=== PATIENT | male | born 1990 | race Caucasian/White ===

== ENCOUNTER 2017-05-25 11:13 | Emergency (ER) | payer MEDICAID ==
[2017-05-25 12:12] LABS: HCT - HEMATOCRIT 46.5 % (42.0-52.0); HGB - HEMOGLOBIN 15.8 g/dL (14.0-18.0); MEAN CORPUSCULAR HEMOGLOBIN 31.3 pg (27.0-31.0); MEAN CORPUSCULAR VOLUME 91.9 fL (80.0-94.0); RED BLOOD COUNT 5.05 10^6/uL (4.70-6.10); RED CELL DISTRIBUTION WIDTH 12.8 % (12.0-15.0); WHITE BLOOD COUNT 5.7 x10^3/uL (4.8-10.8)
--- NOTE | 2017-05-25 12:16 | ED Physician Documentation ---
PD HPI MHE - Stated complaint Stated Complaint: SI - Chief complaint Chief Complaint: MHE - History obtained from History obtained from: Patient, Family (sister in law, Margarita) - History of Present Illness Primary symptom: Suicidal ideation Timing - onset: Yesterday Pain level max: 0 Pain level now: 0 Similar symptoms before: Diagnosis (depression) Recently seen: Not recently seen - Additional information Additional information: states feeling suicidal. no plan. has tried to hang himself and cut his wrists in the past. Was seeing [facility], but has not seen them since february. No currently on medications. Also states hearing voices, but not telling him to harm himself or anyone. Review of Systems Ten Systems: 10 systems reviewed and negative Constitutional: denies: Fever, Chills Ears: denies: Ear pain Nose: denies: Rhinorrhea / runny nose, Congestion Throat: denies: Sore throat GI: denies: Abdominal Pain, Nausea, Vomiting, Diarrhea Skin: denies: Rash Musculoskeletal: denies: Neck pain, Back pain Neurologic: denies: Focal weakness, Numbness, Headache Psychiatric: reports: Depressed, Suicidal. denies: Homicidal, Hallucinations, Delusions, Anxiety PD PAST MEDICAL HISTORY - Past Medical History Past Medical History: Yes Psych: Depression, Bipolar disorder - Past Surgical History Past Surgical History: No - Present Medications Home Medications: Ambulatory Orders Medication Instructions Recorded Confirmed No Known Home Medications [No 05/25/17 05/25/17 Known Home Medications] - Allergies Allergies/Adverse Reactions: Allergies Allergy/AdvReac Type Severity Reaction Status Date / Time No Known Drug Allergies Allergy Verified 05/25/17 11:22 - Social History Does the pt smoke?: No Smoking Status: Never smoker Does the pt drink ETOH?: No Does the pt have substance abuse?: No PD ED PE NORMAL - Vitals Vital signs reviewed: Yes - General General: Alert and oriented X 3, No acute distress, Well developed/nourished - HEENT HEENT: PERRL, Moist mucous membranes - Neck Neck: Supple, no meningeal sign - Cardiac Cardiac: RRR, Strong equal pulses - Respiratory Respiratory: No respiratory distress, Clear bilaterally - Abdomen Abdomen: Soft, Non tender, Non distended - Derm Derm: Warm and dry - Extremities Extremities: Other (normal exam) - Neuro Neuro: Alert and oriented X 3 - Psych Psych: Normal mood, Normal affect Results - Vitals Vitals: Vital Signs - 24 hr 05/25/17 05/25/17 05/25/17 11:15 14:13 15:22 Temperature 36.7 C Heart Rate 71 68 68 Respiratory 16 16 12 Rate Blood Pressure 150/80 H 127/66 125/71 O2 Saturation 100 96 96 05/25/17 05/25/17 17:58 18:54 Temperature Heart Rate 64 69 Respiratory 14 16 Rate Blood Pressure 131/72 H 124/67 O2 Saturation 99 96 Oxygen O2 Source Room air - Labs Labs: Laboratory Tests 05/25/17 05/25/17 05/25/17 12:02 12:02 12:05 WBC 5.7 RBC 5.05 Hgb 15.8 Hct 46.5 MCV 91.9 MCH 31.3 H MCHC 34.0 RDW 12.8 Plt Count 219 MPV 8.0 Sodium 138 Potassium 3.9 Chloride 100 L Carbon Dioxide 30 Anion Gap 8.0 BUN 17 Creatinine 0.7 Estimated GFR (MDRD) 139 Glucose 51 L* POC Whole Bld Glucose Calcium 9.5 Total Bilirubin 2.3 H AST 19 ALT 18 Alkaline Phosphatase 51 Total Protein 8.0 Albumin 5.2 Globulin 2.8 Albumin/Globulin Ratio 1.9 Lipase 21 L Salicylates < 6.0 Urine Opiates Screen NEGATIVE Ur Oxycodone Screen NEGATIVE Urine Methadone Screen NEGATIVE Ur Propoxyphene Screen NEGATIVE Acetaminophen < 10 L Ur Barbiturates Screen NEGATIVE Ur Tricyclics Screen NEGATIVE Ur Phencyclidine Scrn NEGATIVE Ur Amphetamine Screen NEGATIVE U Methamphetamines Scrn NEGATIVE U Benzodiazepines Scrn NEGATIVE Urine Cocaine Screen NEGATIVE U Cannabinoids Screen NEGATIVE Ethyl Alcohol < 5.0 05/25/17 13:38 WBC RBC Hgb Hct MCV MCH MCHC RDW Plt Count MPV Sodium Potassium Chloride Carbon Dioxide Anion Gap BUN Creatinine Estimated GFR (MDRD) Glucose POC Whole Bld Glucose 115 H Calcium Total Bilirubin AST ALT Alkaline Phosphatase Total Protein Albumin Globulin Albumin/Globulin Ratio Lipase Salicylates Urine Opiates Screen Ur Oxycodone Screen Urine Methadone Screen Ur Propoxyphene Screen Acetaminophen Ur Barbiturates Screen Ur Tricyclics Screen Ur Phencyclidine Scrn Ur Amphetamine Screen U Methamphetamines Scrn U Benzodiazepines Scrn Urine Cocaine Screen U Cannabinoids Screen Ethyl Alcohol PD MEDICAL DECISION MAKING - ED course Complexity details: reviewed results, re-evaluated patient, considered differential, d/w patient, d/w family, d/w healthcare network consultant (Felicia ÁLVAREZ) ED course: Patient is a 26-year-old male who presents to the emergency department with suicidal ideation, depression and hearing voices. The voices are not persecutory and are not telling him to harm himself or others. There are no voluntary psychiatric beds available in the region. There is a crisis respite bed and his family is comfortable taking him there. He is calm and cooperative throughout his emergency department stay. He is well-appearing, nontoxic. Afebrile. No acute ingestions. Medically clear for psychiatric care. Patient and family counseled regarding signs and symptoms for which I believe and urgent re-evaluation would be necessary. Patient with good understanding of and agreement to plan and is comfortable going home at this time This document was made in part using voice recognition software. While efforts are made to proofread this document, sound alike and grammatical errors may occur. Departure - Departure Disposition: 01 Home, Self Care Clinical Impression: Depression Qualifiers: Depression Type: unspecified Qualified Code(s): F32.9 - Major depressive disorder, single episode, unspecified Condition: Good Instructions: ED Depression Comments: Go to respite in [facility]. You should be there by 9pm. Return if you worsen. Discharge Date/Time: 05/25/17 18:57
[2017-05-25 12:39] LABS: ALBUMIN/GLOBULIN RATIO 1.9 (1.0-2.2); BILIRUBIN,TOTAL 2.3 mg/dL (0.2-1.0); BUN - BLOOD UREA NITROGEN 17 mg/dL (6-20); CALCIUM 9.5 mg/dL (8.5-10.3); CARBON DIOXIDE - CO2 30 mmol/L (21-32); CHLORIDE 100 mmol/L (101-111); CREATININE 0.7 mg/dL (0.6-1.2); GFR - MDRD 139 (>89); LIPASE 21 U/L (22-51); POTASSIUM 3.9 mmol/L (3.5-5.0); SALICYLATE < 6.0 mg/dL; SODIUM 138 mmol/L (135-145)
[2017-05-25 12:40] LABS: GLUCOSE 51 mg/dL (70-100)
[2017-05-25 12:41] LABS: ACETAMINOPHEN < 10 ug/mL (10-30)
[2017-05-25 18:55] VITALS: BP 124/67
== END 2017-05-25 18:57 | disposition home or self-care (01) ==
LOC: ED 11:13
DX: F32.9 Major depressive disorder, single episode, unspecified (principal); R45.851 Suicidal ideations
CPT/HCPCS: 36415; 80053; 80306; 80307; 80320; 80329; 83690; 99283

== ENCOUNTER 2017-06-03 10:07 | Emergency (ER) | payer MEDICAID ==
[2017-06-03 10:32] LABS: HCT - HEMATOCRIT 44.5 % (42.0-52.0); HGB - HEMOGLOBIN 15.3 g/dL (14.0-18.0); MEAN CORPUSCULAR HEMOGLOBIN 31.4 pg (27.0-31.0); MEAN CORPUSCULAR HGB CONC 34.3 g/dL (32.0-36.0); MEAN CORPUSCULAR VOLUME 91.6 fL (80.0-94.0); MEAN PLATELET VOLUME 7.6 fL (7.4-11.4); RED BLOOD COUNT 4.86 10^6/uL (4.70-6.10); RED CELL DISTRIBUTION WIDTH 12.5 % (12.0-15.0); WHITE BLOOD COUNT 6.6 x10^3/uL (4.8-10.8)
[2017-06-03 10:51] LABS: ALBUMIN/GLOBULIN RATIO 1.5 (1.0-2.2); BILIRUBIN,TOTAL 1.4 mg/dL (0.2-1.0); BUN - BLOOD UREA NITROGEN 14 mg/dL (6-20); CALCIUM 9.6 mg/dL (8.5-10.3); CARBON DIOXIDE - CO2 29 mmol/L (21-32); CHLORIDE 102 mmol/L (101-111); CREATININE 0.5 mg/dL (0.6-1.2); GFR - MDRD 204 (>89); GLUCOSE 92 mg/dL (70-100); LIPASE 23 U/L (22-51); SALICYLATE < 6.0 mg/dL; SODIUM 140 mmol/L (135-145); TOTAL PROTEIN 7.9 g/dL (6.7-8.2)
[2017-06-03 10:58] LABS: ACETAMINOPHEN < 10 ug/mL (10-30)
--- NOTE | 2017-06-03 17:11 | ED Physician Documentation ---
PD HPI MHE - Stated complaint Stated Complaint: MHE - Chief complaint Chief Complaint: MHE - History obtained from History obtained from: Patient - History of Present Illness Primary symptom: Suicidal ideation, Depression Recently seen: Admitted (Recent psychiatric hospitalization, discharged 4 days ago.) - Additional information Additional information: The patient is a 26-year-old male who complains of depression, and has had vague suicidal thoughts. He has no concrete plan at this time, but states he has thought about cutting his wrists. He has a past history of major depression with suicide attempt by hanging and by cutting his wrist in the past. He was recently hospitalized in a psych facility, and was discharged 4 days ago on Abilify. He reports a long history of depression and feelings of hopelessness. He denies any specific recent event that has resulted in the worsening of his condition. He denies the use of alcohol or other drugs. He lives with his brother. Review of Systems Constitutional: denies: Fever Eyes: denies: Irritation Ears: denies: Tinnitus/ringing Nose: denies: Congestion Throat: denies: Sore throat Cardiac: denies: Chest pain / pressure Respiratory: denies: Dyspnea, Cough GI: denies: Abdominal Pain, Nausea, Vomiting : denies: Dysuria Skin: denies: Rash Musculoskeletal: denies: Extremity pain Neurologic: denies: Focal weakness, Numbness, Headache Psychiatric: reports: Depressed, Suicidal. denies: Hallucinations, Delusions PD PAST MEDICAL HISTORY - Past Medical History Past Medical History: Yes Cardiovascular: None Respiratory: None Neuro: None Endocrine/Autoimmune: None Psych: Depression, Bipolar disorder - Past Surgical History Past Surgical History: No - Present Medications Home Medications: Ambulatory Orders Medication Instructions Recorded Confirmed Aripiprazole [Abilify] 10 mg PO DAILY 06/03/17 06/03/17 Prazosin HCl 2 mg PO 06/03/17 - Allergies Allergies/Adverse Reactions: Allergies Allergy/AdvReac Type Severity Reaction Status Date / Time No Known Drug Allergies Allergy Verified 06/03/17 10:17 - Living Situation Living Situation: reports: With family (Brother) - Social History Does the pt smoke?: No Smoking Status: Never smoker Does the pt drink ETOH?: No Does the pt have substance abuse?: No - Immunizations Immunizations are current?: Yes - POLST Patient has POLST: No PD ED PE NORMAL - Vitals Vital signs reviewed: Yes (Borderline hypertension initially.) - General General: Alert and oriented X 3, Well developed/nourished - HEENT HEENT: Atraumatic, PERRL, EOMI, Moist mucous membranes, Pharynx benign - Neck Neck: Supple, no meningeal sign, No adenopathy, No JVD - Cardiac Cardiac: RRR, No murmur - Respiratory Respiratory: No respiratory distress, Clear bilaterally - Abdomen Abdomen: Soft, Non tender, No organomegaly - Back Back: No CVA TTP - Derm Derm: No rash - Extremities Extremities: No edema, No calf tenderness / cord - Neuro Neuro: Alert and oriented X 3, No motor deficit, No sensory deficit PD ED PE EXPANDED - Psych Psych: Depressed, Suicidal, Withdrawn. No: Homicidal, Auditory hallucinations, Visual hallucinations, Delusions Results - Vitals Vitals: Vital Signs - 24 hr 06/04/17 14:27 Heart Rate 63 Respiratory 16 Rate Blood Pressure 142/88 H O2 Saturation 98 Oxygen O2 Source Room air - Labs Labs: Laboratory Tests 06/03/17 06/03/17 06/03/17 10:19 10:27 11:40 WBC 6.6 RBC 4.86 Hgb 15.3 Hct 44.5 MCV 91.6 MCH 31.4 H MCHC 34.3 RDW 12.5 Plt Count 206 MPV 7.6 Sodium 140 Potassium 4.0 Chloride 102 Carbon Dioxide 29 Anion Gap 9.0 BUN 14 Creatinine 0.5 L Estimated GFR (MDRD) 204 Glucose 92 Calcium 9.6 Total Bilirubin 1.4 H AST 20 ALT 22 Alkaline Phosphatase 45 Total Protein 7.9 Albumin 4.7 Globulin 3.2 Albumin/Globulin Ratio 1.5 Lipase 23 Salicylates < 6.0 Urine Opiates Screen NEGATIVE Ur Oxycodone Screen NEGATIVE Urine Methadone Screen NEGATIVE Ur Propoxyphene Screen NEGATIVE Acetaminophen < 10 L Ur Barbiturates Screen NEGATIVE Ur Tricyclics Screen NEGATIVE Ur Phencyclidine Scrn NEGATIVE Ur Amphetamine Screen NEGATIVE U Methamphetamines Scrn NEGATIVE U Benzodiazepines Scrn NEGATIVE Urine Cocaine Screen NEGATIVE U Cannabinoids Screen NEGATIVE Ethyl Alcohol < 5.0 PD MEDICAL DECISION MAKING - ED course Complexity details: reviewed old records, reviewed results, re-evaluated patient , considered differential, d/w patient, d/w programmer analyst consultant ED course: The patient's presentation is significant for major depressive disorder, with suicidal ideation. He presented seeking voluntary admission to psychiatric facility. He was discharged from psychiatric facility in [place] 4 days ago , on treatment with Abilify and prazosin. He continues feelings of extreme hopelessness despite the medication. His thoughts of suicide are vague, but he does suggest thoughts of cutting his wrists. There is no history of alcohol or drug use, and his tox screen is negative. I discussed his condition with the phlebotomist medical lab assistant who arranged for psychiatric hospitalization, but the bed will not be available until tomorrow. The patient will stay in the emergency department until the bed opens up tomorrow, with anticipation of an 8 AM departure. The patient was given his 2 mg p.m. dose of prazosin. At change of shift I turned his care over to the oncoming physician pending the patient's disposition. Departure - Departure Disposition: 65 Psych Hosp/Unit DC/Xfer Clinical Impression: Depression Qualifiers: Depression Type: major depressive disorder Major depression recurrence: recurrent Active/Remission status: currently active Major depression episode severity: severe Psychotic features: without psychotic features Qualified Code(s ): F33.2 - Major depressive disorder, recurrent severe without psychotic features Condition: Stable Discharge Date/Time: 06/04/17 16:30
[2017-06-03] MEDS ORDERED: PRAZOSIN 1 MG CAPSULE PO STA (18:22)
[2017-06-03] MEDS ORDERED: PRAZOSIN 1 MG CAPSULE PO SCH (19:00)
--- NOTE | 2017-06-04 08:30 | ED Physician Documentation ---
History of Present Illness - Stated complaint Stated Complaint: MHE - Chief complaint Chief Complaint: MHE PD PAST MEDICAL HISTORY - Past Medical History Past Medical History: Yes Cardiovascular: None Respiratory: None Neuro: None Endocrine/Autoimmune: None Psych: Depression, Bipolar disorder - Past Surgical History Past Surgical History: No - Present Medications Home Medications: Ambulatory Orders Medication Instructions Recorded Confirmed Aripiprazole [Abilify] 10 mg PO DAILY 06/03/17 06/03/17 Prazosin HCl 2 mg PO 06/03/17 - Allergies Allergies/Adverse Reactions: Allergies Allergy/AdvReac Type Severity Reaction Status Date / Time No Known Drug Allergies Allergy Verified 06/03/17 10:17 - Social History Does the pt smoke?: No Smoking Status: Never smoker Does the pt drink ETOH?: No Does the pt have substance abuse?: No - Immunizations Immunizations are current?: Yes - POLST Patient has POLST: No Results - Vitals Vitals: Vital Signs - 24 hr 06/04/17 06/04/17 06:47 14:27 Temperature 36.9 C Heart Rate 84 63 Respiratory 15 16 Rate Blood Pressure 124/81 H 142/88 H O2 Saturation 97 98 Oxygen O2 Source Room air - Labs Labs: Laboratory Tests 06/03/17 06/03/17 06/03/17 10:19 10:27 11:40 WBC 6.6 RBC 4.86 Hgb 15.3 Hct 44.5 MCV 91.6 MCH 31.4 H MCHC 34.3 RDW 12.5 Plt Count 206 MPV 7.6 Sodium 140 Potassium 4.0 Chloride 102 Carbon Dioxide 29 Anion Gap 9.0 BUN 14 Creatinine 0.5 L Estimated GFR (MDRD) 204 Glucose 92 Calcium 9.6 Total Bilirubin 1.4 H AST 20 ALT 22 Alkaline Phosphatase 45 Total Protein 7.9 Albumin 4.7 Globulin 3.2 Albumin/Globulin Ratio 1.5 Lipase 23 Salicylates < 6.0 Urine Opiates Screen NEGATIVE Ur Oxycodone Screen NEGATIVE Urine Methadone Screen NEGATIVE Ur Propoxyphene Screen NEGATIVE Acetaminophen < 10 L Ur Barbiturates Screen NEGATIVE Ur Tricyclics Screen NEGATIVE Ur Phencyclidine Scrn NEGATIVE Ur Amphetamine Screen NEGATIVE U Methamphetamines Scrn NEGATIVE U Benzodiazepines Scrn NEGATIVE Urine Cocaine Screen NEGATIVE U Cannabinoids Screen NEGATIVE Ethyl Alcohol < 5.0 PD MEDICAL DECISION MAKING - ED course ED course: assumed care 7 AM 26 male hx mental health - he thinks bipolar [facility] and started on new meds despite new meds he feels his cycles are more intense and he is having suicidal ideation and plan to harm self by cutting seen last night and medically clear HENRI Oswald is working on placing pt for voluntary in mental health I went to see pt, he has no new concerns, up eating breakfast, calm cooperative SW able to get pt a bed at [facility] and to get [facility] auth COBRAs completed pt transferred Departure - Departure Disposition: 65 Psych Hosp/Unit DC/Xfer Clinical Impression: Depression Qualifiers: Depression Type: major depressive disorder Major depression recurrence: recurrent Active/Remission status: currently active Major depression episode severity: severe Psychotic features: without psychotic features Qualified Code(s ): F33.2 - Major depressive disorder, recurrent severe without psychotic features Condition: Stable Discharge Date/Time: 06/04/17 16:30
[2017-06-04 16:28] VITALS: BP 142/88
== END 2017-06-04 16:30 ==
LOC: ED 10:07
DX: F33.2 Major depressive disorder, recurrent severe without psychotic features (principal)
CPT/HCPCS: 36415; 80053; 80306; 80307; 80320; 80329; 83690; 85027; 99285; A9270; 99283